=== PATIENT | female | born 1940 | race Caucasian/White ===

== ENCOUNTER → 2017-02-07 | Outpatient (CLI) | payer MEDICARE, BC ==
[~2017-02-07] MED LIST: ALENDRONATE SOD35 MG PO; ALEVE; CALCIUM 600 +1 EAC3 PO; CERTAGEN PO; FIBER DIET1 TA1 PO; LORTAB 5/500 TA1 TA1 PO; PERCOCET7.5 PO; SIMVASTATIN40 MG PO; ST. JOSEPH ASP325 MG PO; VITAMIN E PO; ZYRTEC10 M2 PO
--- NOTE | ~2017-02-07 | MY7 ---
[facility] A Service of [facility] [place] RADIOLOGY TEXT RESULTS PATIENT: KIMBERLY BACK LOCATION: [facility] : 42 UNIT #: [id number] AGE: [address]: Siena Espino MD SEX: F ORDER DR: [id number] [facility]. [place], [place] [address] [id number] O MR#: [id number] Acc #: [id number] NAME: KIMBERLY BACK : 1940 SEX: F STUDY DATE/TIME: 02/07/2017 9:26 UNIT: [facility] ROOM: STUDY DESCRIPTION: MY Mammogram Dx Dig Lt Attending Physician: Siena Espino M.D. Referring Physician: Siena Espino M.D. Ordering Physician: Siena Espino M.D. Primary Care Physician: Siena Espino M.D. MEDICAL IMAGING REPORT This report is preliminary unless electronic signature is present REVISED REPORT SEE ADDENDUM EXAM Additional views left breast and targeted left breast ultrasound, 02/07/2017 INDICATION 76-year-old female recalled for new calcifications in the left breast upper inner quadrant on a recent screening study. TECHNIQUE Magnification CC, magnification MLO and true lateral views of the left breast were obtained and reviewed with an FDA-approved CAD device. Targeted ultrasound of the upper inner quadrant left breast was also performed. COMPARISON 01/20/2017, 11/24/2015, 09/09/2014 and 06/28/2013 FINDINGS MAMMOGRAPHIC FINDINGS: With the benefit of magnification views, the calcifications in the upper inner hemisphere left breast are indeterminate. Some are more benign and dystrophic in appearance while others are more faint, amorphous and indeterminate. There has been an interval increase in densities associated with the calcifications in the upper inner quadrant as well which may reflect some architectural distortion or underlying nodularity. Ultrasound was thereafter performed for further assessment. ULTRASOUND LEFT BREAST: The patient was initially scanned independently by the technologist and then rescanned in my presence. I also personally [facility] A Service of [facility] [place] RADIOLOGY TEXT RESULTS PATIENT: KIMBERLY BACK LOCATION: [facility] : 42 UNIT #: [id number] AGE: [address]: Siena Espino MD SEX: F ORDER DR: scanned the patient. Ultrasound evaluation of the upper inner quadrant left breast demonstrates no distinct correlate for the mammographic findings. There is an incidental lipoma in the 10 o'clock position left breast about 2.0 cm from the nipple which is a benign finding. The initial submitted images by the technologist demonstrated a potential correlate for the mammographic findings at 11 o'clock where there appeared to be some shadowing present. However, under real-time surveillance this is not easily reproducible or confirmed on ultrasound. Given the change in the patient's mammogram and the fact the calcifications are best demonstrated along with the nodularity mammographically, further evaluation with a stereotactic biopsy is recommended for further assessment. Findings and recommendations for biopsy have been discussed with the patient here in the department and she has voiced understanding and agreement. She has been asked to discontinue her daily aspirin regimen at least 5 days prior to biopsy. I have attempted to reach the office of the ordering physician, Dr. Siena Espino, at the time of this dictation. She was not available to take my call. I have left a message on her personal voice mail line at the time of this dictation requesting a return phone call to discuss the findings and scheduling of the stereotactic biopsy. I have also marked this a STAT dictation. IMPRESSION Abnormal examination. The calcifications in the upper inner left breast are indeterminate and there is some new indeterminate nodularity in the same position as the calcifications. Further evaluation with stereotactic biopsy is recommended as these findings are not easily visualized or reproducible clearly on ultrasound. Stereotactic biopsy should be performed for further assessment and scheduled at the earliest convenience for the patient. The patient is aware of the recommendation for biopsy. I have marked this a STAT dictation and left a personal voice mail for the ordering physician Dr. Siena Espino, as described above. I am awaiting a return phone call to discuss findings and recommendations for this patient. Please see the full dictated report. Patients over the age of 40 are entered into a reminder system with target due date for the next mammogram. A result letter will also be sent to the patient. BIRADS 4 Suspicious Abnormality; Biopsy Should Be Considered STAT * RESULT Dictated by... Rafael Heck M.D. THIS IS AN ELECTRONICALLY VERIFIED REPORT Rafael Heck M.D. at 02/07/2017 1:52 PM [facility] A Service of [facility] RADIOLOGY TEXT RESULTS PATIENT: KIMBERLY BACK LOCATION: [facility] : 42 UNIT #: [id number] AGE: [address]: Siena Espino MD SEX: F ORDER DR: Mallika TD: 02/07/2017 11:05 JOB #: [id number] ADDENDUM Findings regarding the recommendation for stereotactic biopsy of the microcalcifications in the left breast have now been personally discussed by telephone by me with Dr. Siena Espino at the time of this addendum. STAT * RESULT Dictated by... Rafael Heck M.D. THIS IS AN ELECTRONICALLY VERIFIED REPORT Rafael Heck M.D. at 02/08/2017 7:28 AM Beba TD: 02/07/2017 13:59 JOB #: [id number] CC: Pretty/kamini Please Delete MEDICAL IMAGING REPORT COPY
--- NOTE | ~2017-02-07 | US24 ---
[facility] A Service of [facility] RADIOLOGY TEXT RESULTS PATIENT: KIMBERLY BACK LOCATION: [facility] : 44 UNIT #: [id number] AGE: [address]: Siena Espino MD SEX: F ORDER DR: [id number] [facility] [address] [place], [place] [address] [id number] O MR#: [id number] Acc #: [id number] NAME: KIMBRELY BACK. : 1940 SEX: F STUDY DATE/TIME: 02/07/2017 10:08 UNIT: [facility] ROOM: STUDY DESCRIPTION: US Breast Unilateral Attending Physician: Siena Espino M.D. Referring Physician: Siena Espino M.D. Ordering Physician: Sinea Espino M.D. Primary Care Physician: Siena Espino M.D. MEDICAL IMAGING REPORT This report is preliminary unless electronic signature is present EXAM Targeted ultrasound upper inner quadrant left breast 02/07/2017 INDICATIONS Correlation with diagnostic mammogram same date. Please see additional views left breast same date for this dictation. BIRADS: 4- Suspicious abnormality. Biopsy should be considered. Dictated by... Rafael Heck M.D. THIS IS AN ELECTRONICALLY VERIFIED REPORT Rafael Heck M.D. at 02/08/2017 7:28 AM Rehana TD: 02/07/2017 11:07 JOB #: [id number] MEDICAL IMAGING REPORT COPY
== END | disposition home or self-care (01) ==
LOC: CMAM 08:51
DX: R92.8 Other abnormal and inconclusive findings on diagnostic imaging of breast (principal)
CPT/HCPCS: 76641; G0206

== ENCOUNTER → 2017-02-23 | Outpatient (CLI) | payer MEDICARE, BC ==
--- NOTE | ~2017-02-23 | MY22 ---
[facility] A Service of [facility] RADIOLOGY TEXT RESULTS PATIENT: KIMBERLY BACK LOCATION: [facility] : 44 UNIT #: [id number] AGE: [address]: Siena Espino MD SEX: F ORDER DR: [id number] [facility] [address] [place], [place] [address] [id number] O MR#: [id number] Acc #: [id number] NAME: KIMBERLY BACK : 1940 SEX: F STUDY DATE/TIME: 02/23/2017 13:28 UNIT: [facility] ROOM: STUDY DESCRIPTION: MY BX Breast 1st Lesion Stereo Attending Physician: Siena Espino M.D. Ordering Physician: Siena Espino M.D. Primary Care Physician: Siena Espino M.D. 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 There is associated calcification and comedo necrosis with cancerization of the lobules. Please see full Pathology report. Surgical and oncological consultation recommended. Imaging results and Pathology results are concordant. STAT * RESULT Dictated by... Gopal Temple Jr., M.D. THIS IS AN ELECTRONICALLY VERIFIED REPORT Gopal Temple Jr., M.D. at 03/01/2017 3:55 PM MASSIMO/michael TD: 03/01/2017 14:15 JOB #: [id number] MEDICAL IMAGING REPORT Page 1 of 1 COPY
== END | disposition home or self-care (01) ==
LOC: CWCC 12:15
DX: D05.12 Intraductal carcinoma in situ of left breast (principal); Z17.0 Estrogen receptor positive status [ER+]
CPT/HCPCS: 88305; 88344; 88360; G0204